=== PATIENT | female | born 1960 | race Caucasian/White ===

== ENCOUNTER 2017-05-01 14:44 | Emergency (ER) | payer OTHER ==
[~2017-05-01] VITALS: Ht 172.7 cm; Wt 73.0 kg
[2017-05-01 14:46] VITALS: BP 146/70; PULSE 94; RESP 18; TEMP 97.9; O2SAT 98
--- NOTE | 2017-05-01 15:36 | PD ---
HPI Chief Complaint: Exposure to Blood/Body Fluids Time Seen by Provider: 14:54 Travel History International Travel<30 days: No Contact w/Intl Traveler<30days: No Traveled to known affect area: No History of Present Illness HPI The patient is a 56-year-old female who presents to the emergency department after exposure to unknown substance/fluid while at work. 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 She was opening an envelope earlier today when an unknown substance got on her left aspect of face , left thigh, left aspect of her shoulder. The patient states she had a burning sensation initially and then irritation to the left eye with mild photophobia. She also complains of redness to the neck and left shoulder with mild itching. The patient states they placed the envelope under a certain light and they could see the fluid. She describes the fluid is having a sweet, syrup-like smell. The patient denies any shortness of breath, chest pain, nausea, vomiting, or abdominal pain. Symptoms are mild to moderate, slightly alleviated after the eyes were irrigated at work. [facility] Past Medical History Cardiovascular Problems: Yes ?: Not Social History Tobacco Use: No Allergies-Medications (Allergen,Severity, Reaction): Coded Allergies: No Known Allergies (Verified Allergy, Severe, 12/27/03) Reported Meds & Prescriptions Reported Meds & Active Scripts Active Reported Lisinopril 10 Mg Tab 10 Mg PO HS Atorvastatin (Atorvastatin Calcium) 20 Mg Tab 20 Mg PO HS Review of Systems Except as stated in HPI: all other systems reviewed are Neg Eyes: Positive: Other HENT: No: Headaches Cardiovascular: No: Chest Pain or Discomfort Respiratory: No: Shortness of Breath Gastrointestinal: No: Nausea, Vomiting, Abdominal Pain Skin: Positive Rash, Positive Itching Physical Exam Narrative GENERAL: Awake, alert, pleasant 56-year-old female who appears her stated age and is in no acute respiratory distress. SKIN: Focused skin assessment warm/dry. Mild erythema of the anterior aspect of the neck and left trapezius but no visible urticaria. HEAD: Atraumatic. Normocephalic. EYES: Pupils equal and round. Pupils are 4 mm bilateral and reactive. EOMs are intact. Minimal injection of the left eye. Photophobia the left eye noted. ENT: No nasal bleeding or discharge. Mucous membranes pink and moist. No edema the uvula noted. NECK: Trachea midline. No JVD. CARDIOVASCULAR: Regular rate and rhythm. No murmur appreciated. RESPIRATORY: No accessory muscle use. Clear to auscultation. Breath sounds equal bilaterally. No wheezes noted. GASTROINTESTINAL: Abdomen soft, non-tender, nondistended. MUSCULOSKELETAL: No obvious deformities. No clubbing. No cyanosis. No edema. NEUROLOGICAL: Awake and alert. No obvious cranial nerve deficits. Motor grossly within normal limits. Normal speech. PSYCHIATRIC: Appropriate mood and affect; insight and judgment normal. Data Data Last Documented VS Vital Signs Date Time Temp Pulse Resp B/P (MAP) Pulse Ox O2 Delivery O2 Flow Rate FiO2 05/01/17 15:15 16 05/01/17 14:46 97.9 94 146/70 (95) 98 Orders Orders Proparacaine 0.5% Opth Soln (Alcaine 0.5 (05/01/17 16:00) Prednisone (Deltasone) (05/01/17 17:00) Diphenhydramine (Benadryl) (05/01/17 17:00) MDM Medical Decision Making Medical Screen Exam Complete: Yes Emergency Medical Condition: Yes Medical Record Reviewed: Yes Differential Diagnosis Differential diagnosis includes chemical exposure, poison exposure, allergic dermatitis, chemical dermatitis, allergic conjunctivitis. Narrative Course The patient was immediately isolated and sent to the decontamination room, her clothes were removed and placed in a bag, the patient wished shower with fresh water and then placed in clean scrubs. The nursing staff discussed the patient with poison control who states it does not appear to be a poisoning/severe chemical exposure based on the description. They stated it was symptomatic care. Therefore, the patient was brought back to room 44 after decontamination. The patient then had proparacaine applied to the left eye and staining was applied to the left eye and visualized under [place] lamp. I exam was unremarkable, no corneal abrasions noted. Digital called back after testing of the substance, it was noted to be heroin. The patient appears to have an allergic reaction after exposure to the face and shoulders that she has mild erythema, may be secondary to the hair when by product, whenever the heroin was cut with. Therefore, patient will be placed on Benadryl and prednisone. She'll be oh she will be given a work excuse for 2 days. She is advised to follow-up with their occupational physician. Diagnosis Primary Impression: Chemical exposure Patient Instructions: General Instructions Additional Instructions: Prednisone and Benadryl as directed. Follow-up with your occupational physician. Monitor for signs of secondary infection. Return if symptoms worsen or progress. Med/Other Pt SpecificInfo: Prescription(s) given Scripts Prednisone (Deltasone) 20 Mg Tab 40 MG PO DAILY for 4 Days, #8 TAB 0 Refills Prov: Danish Donnelly MD 05/01/17 Diphenhydramine (Diphenhydramine) 25 Mg Cap 25 MG PO Q6H Y for ALLERGIES, #20 CAP 0 Refills Prov: Danish Donnelly MD 05/01/17 Disposition: 01 DISCHARGE HOME Condition: Stable Danish Donnelly MD May 01, 2017 15:36
[2017-05-01] MEDS ORDERED: LISI10TA3 PO (15:39)
[2017-05-01] MEDS ORDERED: ATOR20TA15 PO (15:39)
[2017-05-01] MEDS ORDERED: PROPARACAINE HCL 0.5% OPHT SOLN 15 ML BTL LEFT EYE ONE (16:00)
[2017-05-01] MEDS ORDERED: PRED-503 PO (16:52)
[2017-05-01] MEDS ORDERED: DIPH25CA PO (16:52)
[2017-05-01] MEDS ORDERED: predniSONE 20 MG TAB PO ONE (17:00)
[2017-05-01] MEDS ORDERED: diphenhydrAMINE HCL 25 MG CAP PO ONE (17:00)
[2017-05-01 17:15] VITALS: BP 120/77; TEMP 97.8
== END 2017-05-01 17:15 | disposition home or self-care (01) ==
LOC: NEPD 14:44
DX: Z77.21 Contact with and (suspected) exposure to potentially hazardous body fluids (principal); R21 Rash and other nonspecific skin eruption; L29.9 Pruritus, unspecified
CPT/HCPCS: 99283; J7512